=== PATIENT | male | born 1970 | race Caucasian/White ===

== ENCOUNTER 2016-08-04 09:11 | Emergency (ER) | payer SELFPAY ==
[~2016-08-04] VITALS: Ht 154.9 cm; Wt 50.0 kg
[~2016-08-04 09:11] MED LIST: NO HOME MEDICATIONS; OXYC1TAB8 PO; TAMS-1 PO
[2016-08-04 09:13] VITALS: Ht 154.9 cm; Wt 50.0 kg
--- OUTSIDE RECORDS SUMMARY | 2016-08-04 09:15 | XMS REPORT | Referral Summary ---
Author Author [facility] Organization [facility] Address Unknown Phone Unavailable Care Team Providers Care Occupational Therapist Per Diem Name Role Phone No PCP, States Primary Care Physician [phone] Encounter VC Date(s): 12/31/15 - 12/31/15 [facility] [address], [place] [address] Discharge Diagnosis: ETOH abuse Discharge Diagnosis: Acute alcohol intoxication Discharge Diagnosis: Hypomagnesemia Discharge Disposition: 01-Home or Self Care Attending Physician: Rk Stewart MD Admitting Physician: Rk Stewart MD Vital Signs Most recent to 1 oldest [Reference Range]: Temperature Oral 36.8 degC [35.8-37.3 degC] (12/31/15 7:44 PM) Peripheral Pulse 88 bpm Rate [60-100 bpm] (12/31/15 7:44 PM) Heart Rate Monitored 93 bpm [60-100 bpm] (12/31/15 10:08 PM) Respiratory Rate 25 br/min [14-20 br/min] *HI* (12/31/15 10:38 PM) Blood Pressure 116/80 mmHg [90-140/60-90 mmHg] (12/31/15 10:08 PM) Mean Arterial 91 mmHg Pressure, Cuff (12/31/15 10:08 PM) SpO2 95 % (12/31/15 10:38 PM) Problem List Condition Effective Dates Status Health Status Informant Alcoholism(Confirmed Resolved ) Anxiety(Confirmed) Resolved Depression(Confirmed Resolved ) Hep C(Confirmed) Resolved Liver Resolved disease(Confirmed) Allergies, Adverse Reactions, Alerts No Known Medication Allergies Medications busPIRone Oral, 0 Refill(s) Start Date: 09/25/13 Status: Ordered Campral 333 mg oral delayed release tablet tabs, Oral, TID, 0 Refill(s) Start Date: 09/25/13 Status: Ordered citalopram Oral, Daily, 0 Refill(s) Start Date: 09/25/13 Status: Ordered ProAir HFA puffs, Inhalation, QID, 0 Refill(s) Start Date: 09/25/13 Status: Ordered Results Hematology Most recent to 1 oldest [Reference Range]: WBC [4.8-10.8 7.8 10*3/uL 10*3/uL] (12/31/15 8:39 PM) RBC [4.60-6.20] 4.95 (12/31/15 8:39 PM) Hgb [14.0-18.0 15.3 gm/dL gm/dL] (12/31/15 8:39 PM) Hct [42.0-52.0 %] 44.1 % (12/31/15 8:39 PM) MCV [82.0-99.0 fL] 89.1 fL (12/31/15 8:39 PM) MCH [27.0-32.0 pg] 30.9 pg (12/31/15 8:39 PM) MCHC [32.0-36.0 34.7 gm/dL gm/dL] (12/31/15 8:39 PM) RDW [11.5-14.5 %] 13.2 % (12/31/15 8:39 PM) Platelet [150-400 236 10*3/uL 10*3/uL] (12/31/15 8:39 PM) MPV [9.4-12.3 fL] 11.0 fL (12/31/15 8:39 PM) Immature 0.1 % Granulocytes (12/31/15 8:39 PM) [0.0-1.0 %] Neutrophils [51-75 39 % %] *LOW* (12/31/15 8:39 PM) Lymphocytes [20-46 53 % %] *HI* (12/31/15 8:39 PM) Monocytes [4-11 %] 6 % (12/31/15 8:39 PM) Eosinophils [0-4 %] 1 % (12/31/15 8:39 PM) Basophils [0-2 %] 1 % (12/31/15 8:39 PM) Neutro Absolute 3.01 10*3 [1.90-7.00 10*3] (12/31/15 8:39 PM) Lymph Absolute 4.16 10*3 [0.80-3.30 10*3] *HI* (12/31/15 8:39 PM) [place] Absolute 0.48 10*3 [0.30-1.00 10*3] (12/31/15 8:39 PM) Eos Absolute 0.08 10*3 [0.00-0.50 10*3] (12/31/15 8:39 PM) Baso Absolute 0.07 10*3 [0.00-0.20 10*3] (12/31/15 8:39 PM) Chemistry Most recent to 1 oldest [Reference Range]: Sodium Lvl [136-144 141 mEq/L mEq/L] (12/31/15 8:39 PM) Potassium Lvl 3.6 mEq/L [3.6-5.1 mEq/L] (12/31/15 8:39 PM) Chloride [99-109 103 mEq/L mEq/L] (12/31/15 8:39 PM) CO2 [22-32 mEq/L] 27 mEq/L (12/31/15 8:39 PM) AGAP [3-20] 11 (12/31/15 8:39 PM) BUN [4-20 mg/dL] 6 mg/dL (12/31/15 8:39 PM) Glucose Lvl [70-100 105 mg/dL mg/dL] *HI* (12/31/15 8:39 PM) Creatinine Lvl 0.81 mg/dL [0.64-1.27 mg/dL] (12/31/15 8:39 PM) eGFR [>60] >60 1 (12/31/15 8:39 PM) Calcium Lvl 8.9 mg/dL [8.6-10.0 mg/dL] (12/31/15 8:39 PM) Albumin Lvl [3.5-4.8 4.2 gm/dL gm/dL] (12/31/15 8:39 PM) Total Protein 7.3 gm/dL [6.1-7.9 gm/dL] (12/31/15 8:39 PM) Globulin [1.9-4.3 3.1 gm/dL gm/dL] (12/31/15 8:39 PM) ALT [17-63 U/L] 219 U/L *HI* (12/31/15 8:39 PM) AST [15-41 U/L] 279 U/L *HI* (12/31/15 8:39 PM) Alk Phos [26-104 98 U/L U/L] (12/31/15 8:39 PM) Bili Total [0.2-1.2 0.6 mg/dL 2 mg/dL] (12/31/15 8:39 PM) Magnesium Lvl 1.6 mg/dL [1.8-2.5 mg/dL] *LOW* (12/31/15 8:39 PM) Sodium Venous 143 mEq/L [136-144 mEq/L] (12/31/15 8:44 PM) Potassium Venous 3.6 mEq/L 3 [3.6-5.1 mEq/L] (12/31/15 8:44 PM) Calcium Ionized 1.04 mmol/L Venous [1.19-1.41 *LOW* mmol/L] (12/31/15 8:44 PM) Total CO2 Venous 26 mEq/L [25-29 mEq/L] (12/31/15 8:44 PM) HGB Venous NPT 16.0 gm/dL [14.0-18.0 gm/dL] (12/31/15 8:44 PM) HCT Venous 47.0 % [42.0-52.0 %] (12/31/15 8:44 PM) Glucose Venous 103 mg/dL [70-100 mg/dL] *HI* (12/31/15 8:44 PM) BUN Venous [4-20] 6 (12/31/15 8:44 PM) Creatinine Venous 1.2 mg/dL [0.7-1.2 mg/dL] (12/31/15 8:44 PM) Venous CL [99-109 101 mEq/L mEq/L] (12/31/15 8:44 PM) Anion Gap, Oniel 16 [3-20] (12/31/15 8:44 PM) 1Result Comment: Multiply eGFR results by 1.21 for race. 2Result Comment: Naproxen, specifically the metabolite O-desmethylnaproxen, may cause spurious elevation in Total Bilirubin levels. 3Result Comment: This test was performed on a whole blood specimen. The presence or absence of hemolysis cannot be assessed. Hemolysis can falsely elevate potassium levels. Normals are for venous specimens only. Toxicology Most recent to 1 oldest [Reference Range]: Ethanol Lvl 317 mg/dL (12/31/15 9:10 PM) Immunizations No data available for this section Procedures No data available for this section Social History Social History Type Response Smoking Status Current every day smoker Assessment and Plan No data available for this section
--- OUTSIDE RECORDS SUMMARY | 2016-08-04 09:15 | XMS REPORT | Continuity of Care Document ---
Author Author [facility] Organization [facility] Address Unknown Phone Unavailable Support Name Relationship Address Phone JESS GRACE MD Caregiver [address] [place] [address] Unavailable ELEAZAR LOCKHART APRN Caregiver [address] [place] [address] Unavailable CONNER OLIVO Next Of Kin [address] [place] [address] Insurance Providers Guarantor Ruddy Franco Address [address] [place] [address] Email DENIED/NO TO PT PORT Payer Self Pay Subscriber's Name Ruddy Franco Relationship 18 Self Chief Complaint and Reason for Visit Chief Complaint General Reason for Visit [id number] Alcohol abuse Problems Active Problems Medical Problem Onset Date Status ALCOHOL WITHDRAWL Unknown Acute Acute hypernatremia Unknown Resolved Alcohol abuse Unknown Chronic Alcohol intoxication Unknown Resolved COPD (chronic obstructive pulmonary disease) Unknown Chronic Elevated LFTs Unknown Acute Hepatitis C Unknown Chronic Laceration Unknown Acute Poor dentition Unknown Chronic Shakiness Unknown Acute Somnolence Unknown Acute Underweight Unknown Chronic Past Problems Medical Problem Onset Date Kidney stone on left side Unknown Medications Current Home Medications Medication Dose Units Route Directions Days Qty Instructions Start Date No Home Medications 04/10/15 Oxycodone Hcl/Acetaminophen (Percocet 5-325 Mg Tablet) 5-325 Tablet 1 Tab Oral Four Times Daily for Pain 30 Tablet Take 1 tablet, by mouth, 4 times a day. 02/26/16 Tamsulosin Hcl (Flomax) 0.4 Mg Capsule 0.4 Mg Oral Bedtime 30 Capsule Take 1 capsule, by mouth, one time a day at BEDTIME. 02/26/16 Past Home Medications Medication Directions Ordered Status Oxazepam 30 Mg Capsule, 30 Mg Oral Q6h/0300,0900,1500,2100 for Tremors/ Withdrawal 10/21/14 Discontinued Social History Social History Problem Response Recorded Date/Time Onset Date Status Hx Substance Use N DENIES 02/26/2016 7:40am Not Applicable Not Applicable Hx Alcohol Use Y 0.5 GALLON/DAY 02/26/2016 7:40am Not Applicable Not Applicable Has the pt used tobacco in the last 12 months Yes 04/11/2015 12:22am Not Applicable Not Applicable Tobacco Usage smoke 04/11/2015 11:13am Not Applicable Not Applicable Query Response Start Date Stop Date Smoking Status Heavy Smoker Hospital Discharge Instructions No hospital discharge instructions. Plan of Care Discharge Date 02/26/16 1:26pm Disposition 01 DISCHARGED HOME, SELF-CARE Condition at Discharge Improved Instructions/Education Provided Kidney Stones -- Adult Forms Provided Return to Work/School Permit Prescriptions See Medication Section Referrals ELEAZAR LOCKHART APRN Address: [address] [place] [phone] Additional Instructions/Education Please call your primary care physician for follow-up. Because of her history of bladder surgery, you may have difficulty passing the stone. Every1Mobile phone number is [phone]. Care Plan and Goals Physician Care Plan Problem: Kidney stone Goal: Follow up with primary care provider Instructions: Take medications and follow care plan as discussed/written Functional Status No functional status results. Allergies, Adverse Reactions, Alerts Allergen Type Severity Reaction Status Last Updated No Known Drug Allergies Allergy Unknown Active 05/29/15 Immunizations Query Response on File Recorded Date/Time Hx Influenza Vaccination No 04/11/15 12:22am Hx Pneumococcal Vaccination No 04/11/15 12:22am Hx Influenza Vaccination No 04/11/15 12:22am Influenza Vaccine Hx NONE 02/26/16 7:40am Vital Signs Acute Vital Signs Vital Response Date/Time Temperature (Fahrenheit) 98.6 deg F (96.8 - 99.1) 02/26/2016 1:26pm Temperature (Calculated Celsius) 37.26347 degrees C (36.0 - 37.3) 02/26/2016 1:26pm Pulse Rate (adult) 90 bpm (60 - 100) 02/26/2016 1:26pm Respiratory Rate 16 breaths/min (10 - 20) 02/26/2016 1:26pm O2 Sat by Pulse Oximetry 94 % (90 - 100) 02/26/2016 1:26pm Blood Pressure 144/97 mm Hg 02/26/2016 1:26pm Height (Feet) 5 feet 02/26/2016 7:40am Height (Inches) 9.00 inches 02/26/2016 7:40am Weight (Kilograms) 57.100 kg 02/26/2016 7:40am Body Mass Index (BMI) 18.0 02/26/2016 7:40am Results Laboratory Results Test Name Result Units Flags Reference Collection Date/Time Result Date/ Time Comments White Blood Count 6.8 T/MM3 4.5-11.0 02/26/2016 9:02/26/2016 9: 25am Red Blood Count 5.57 M/MM3 4.50-5.90 02/26/2016 9:02/26/2016 9: 25am Hemoglobin 16.7 GM/DL 13.5-17.5 02/26/2016 9:02/26/2016 9:25am Hematocrit 49.3 % 41-53 02/26/2016 9:02/26/2016 9:25am Mean Corpuscular Volume 88.5 UM3 80-100 02/26/2016 9:02/26/2016 9: 25am Mean Corpuscular Hemoglobin 30.0 UUG 26-34 02/26/2016 9:2015 9:25am Mean Corpuscular Hemoglobin Concent 33.9 GM/DL 31-37 02/26/2016 9:02/26/2016 9:25am RDW Standard Deviation 44.0 FL 36.9-50.2 02/26/2016 9:02/26/2016 9 :25am Platelet Count 127 T/MM3 L 130-400 02/26/2016 9:02/26/2016 9:25am Mean Platelet Volume 11.0 UM3 9.4-12.4 02/26/2016 9:02/26/2016 9: 25am Neutrophils (%) (Auto) 41.6 % 33-66 02/26/2016 9:02/26/2016 9: 25am Lymphocytes (%) (Auto) 49.3 % H 23-45 02/26/2016 9:02/26/2016 9: 25am Monocytes (%) (Auto) 5.4 % 0-9.0 02/26/2016 9:02/26/2016 9:25am Eosinophils (%) (Auto) 2.8 % 0-4 02/26/2016 9:02/26/2016 9:25am Basophils (%) (Auto) 0.6 % 0-2 02/26/2016 9:02/26/2016 9:25am Immature Granulocyte % (Auto) 0.3 % 0.0-0.5 02/26/2016 9:2015 9:25am Absolute Neutrophils (auto) 2.9 T/MM3 1.8-7.7 02/26/2016 9:2015 9:25am Absolute Lymphocytes (auto) 3.4 T/MM3 1-4.8 02/26/2016 9:2015 9:25am Absolute Monocytes (auto) 0.4 T/MM3 0-0.8 02/26/2016 9:02/26/2016 9:25am Absolute Eosinophils (auto) 0.2 T/MM3 0-0.5 02/26/2016 9:2015 9:25am Absolute Basophils (auto) 0.0 T/MM3 0-0.2 02/26/2016 9:02/26/2016 9:25am Absolute Immature Granulocyte (auto 0.02 T/MM3 0.00-0.03 02/26/2016 9: 02/26/2016 9:25am Icterus Index < 2 0-7 02/26/2016 9:02/26/2016 9:35am Chemistry Specimen Hemolysis 24 0-25 02/26/2016 9:02/26/2016 9: 35am 0-25: Specimen Exhibited No Hemolysis. Turbidity < 20 0-20 02/26/2016 9:02/26/2016 9:35am Sodium Level 148 MEQ/L H 134-144 02/26/2016 9:02/26/2016 9:35am Potassium Level 4.1 MEQ/L 3.6-5 02/26/2016 9:02/26/2016 9:35am Chloride Level 105 MEQ/L 98-107 02/26/2016 9:02/26/2016 9:35am Carbon Dioxide Level 29 MEQ/L 22-30 02/26/2016 9:02/26/2016 9: 35am Anion Gap 14 MEQ/L 5-15 02/26/2016 9:02/26/2016 9:35am Blood Urea Nitrogen 8.0 MG/DL L 9-20 02/26/2016 9:02/26/2016 9: 35am Creatinine 0.7 MG/DL L 0.8-1.5 02/26/2016 9:02/26/2016 9:35am BUN/Creatinine Ratio 11 RATIO 6-26 02/26/2016 9:02/26/2016 9:35am Glomerular Filtration Rate Calc 122 02/26/2016 9:02/26/2016 9: 35am Glucose Level 108 MG/DL 75-110 02/26/2016 9:02/26/2016 9:35am Calculated Osmolality 283 MOSM/KG H 261-280 02/26/2016 9:2015 9:35am Calcium Level 8.9 MG/DL 8.4-10.2 02/26/2016 9:02/26/2016 9:35am Phosphorus Level 3.6 MG/DL 2.5-4.5 02/26/2016 9:02/26/2016 9:35am Total Bilirubin 0.60 MG/DL 0.20-1.30 02/26/2016 9:02/26/2016 9: 35am Alkaline Phosphatase 101 U/L 38-126 02/26/2016 9:02/26/2016 9: 35am Total Protein 7.8 G/DL 6.3-8.2 02/26/2016 9:02/26/2016 9:35am Albumin 4.4 G/DL 3.5-5.0 02/26/2016 9:02/26/2016 9:35am Globulin 3.4 G/DL 2.4-3.6 02/26/2016 9:02/26/2016 9:35am Albumin/Globulin Ratio 1.3 RATIO 1.1-2.2 02/26/2016 9:02/26/2016 9 :35am Aspartate Amino Transf (AST/SGOT) 170 U/L H 17-59 02/26/2016 9: 9:35am Alanine Aminotransferase (ALT/SGPT) 124 U/L H 21-72 02/26/2016 9: 9:35am Lipase 170 U/L 23-300 02/26/2016 9:02/26/2016 9:44am Magnesium Level 1.7 MG/DL 1.6-2.3 02/26/2016 9:02/26/2016 9:44am Ammonia 12 UMOL/L 9-33 02/26/2016 9:02/26/2016 9:35am Acetaminophen Level < 10 UG/ML L 10-02/26/2016 9:02/26/2016 9: 35am TOXIC <4 HR POST INGESTION: >150 MG/L; TOXIC <12 HR POST INGESTION: >50 MG/L Salicylates Level < 1.0 MG/DL L 2-02/26/2016 9:02/26/2016 9: 35am Alcohol, Quantitative 267 MG/DL <10 02/26/2016 9:02/26/2016 9: 35am Urine Collection Type VOIDED-NOT CC-MIDSTR 02/26/2016 9:432015 9:50am Urine Color YELLOW YELLOW 02/26/2016 9:4302/26/2016 9:50am Urine Turbidity CLEAR CLEAR 02/26/2016 9:43am 02/26/2016 9:50am Urine Specific [place] 1.025 1.015-1.025 02/26/2016 9:43am 2015 9:50am Urine pH 6.0 5.0-8.0 02/26/2016 9:43am 02/26/2016 9:50am Urine Leukocyte Esterase NEGATIVE NEGATIVE 02/26/2016 9:43am 2015 9:50am Urine Nitrite NEGATIVE NEGATIVE 02/26/2016 9:43am 02/26/2016 9:50am Urine Protein 1+ A NEGATIVE 02/26/2016 9:43am 02/26/2016 9:50am Urine Glucose (UA) NEGATIVE NEGATIVE 02/26/2016 9:43am 02/26/2016 9: 50am Urine Ketones NEGATIVE NEGATIVE 02/26/2016 9:43am 02/26/2016 9:50am Urine Urobilinogen 0.2 EU/DL NORMAL 02/26/2016 9:43am 02/26/2016 9: 50am Urine Bilirubin NEGATIVE NEGATIVE 02/26/2016 9:43am 02/26/2016 9: 50am Urine Blood 3+ A NEGATIVE 02/26/2016 9:43am 02/26/2016 9:50am Urine WBC NONE SEEN /HPF 0-5 02/26/2016 9:43am 02/26/2016 10:19am Urine RBC 50-200 /HPF H 0-3 02/26/2016 9:43am 02/26/2016 10:19am Urine Bacteria TRACE H NEGATIVE 02/26/2016 9:43am 02/26/2016 10:19am Urine Mucus PRESENT 02/26/2016 9:43am 02/26/2016 10:19am Urine Culture Indicated CULT NOT INDICATED 02/26/2016 9:43am 2015 10:19am Name: RUDDY FRANCO Unit #: [id number] : 1970 Sex: M Admit Date: Loc / Svc: ED Discharge Date: DIAGNOSTIC IMAGING REPORT Report #: [id number] [facility] MARVEL Indication: ITS.REASON: left flank pain, hematuria Procedure: CT ABD/PELVIS W/O CONTRAST: Encounter: Initial Comparison: None Technique: Axial CT images were performed through the abdomen and pelvis without intravenous contrast. Coronal and sagittal reformatted images were also obtained. Findings: Lower chest: Right lower lobe groundglass opacities likely related to atelectasis. The visualized heart is normal in size without pericardial effusion. Abdomen: The noncontrast liver is homogeneous in attenuation. The gallbladder is distended and appears normal. No biliary ductal dilatation. The noncontrast pancreas is homogeneous in attenuation. The spleen is normal in size and attenuation. The adrenal glands are within normal limits. 3 mm nonobstructing left renal stone. Mild asymmetric prominence of the left ureter without sujatha left hydronephrosis. The noncontrast kidneys appear otherwise grossly normal. The right ureter is normal in course and caliber. The abdominal aorta is normal in course and caliber. The stomach is partially distended and appears grossly normal. Small bowel loops are normal in caliber without evidence of obstruction. The colon appears grossly normal. The appendix is normal. No intra-abdominal free air, free fluid, focal fluid collections, or lymphadenopathy. Pelvis: 3 mm stone noted within the left bladder/left ureterovesicular junction. The bladder is distended and appears otherwise normal. No pelvic free fluid or lymphadenopathy. Calcified pelvic phleboliths. Nonspecific prostatic calcifications. The prostate and seminal vesicles appear otherwise normal. Osseous structures and soft tissues: No acute osseous abnormality identified. Chronic appearing irregularity of the inferior pubic rami suggesting prior fractures. Mild degenerative disc disease of the visualized spine. Impression: 3 mm stone noted within the left bladder/left ureterovesicular junction with associated mild asymmetric prominence of the left ureter without sujatha left hydronephrosis. Additional 3 mm nonobstructing stone also noted within the left kidney. . Procedures No known history of procedures. Encounters Encounter Location Arrival/Admit Date Discharge/Depart Date Attending Provider Departed Emergency Room [facility] 02/26/16 7:37am 02/26/16 1: 26pm JESS GRACE MD Recent Diagnosis
--- OUTSIDE RECORDS SUMMARY | 2016-08-04 09:15 | XMS REPORT | Continuity of Care Document ---
Author Author [facility] Organization [facility] Address Unknown Phone Unavailable Allergies Active Description Code Type Severity Reaction Onset Reported/Identified Relationship to Patient Clinical Status Yes No Known Medication Allergies NKMA N/A N/A 03/08/2015 Medications Problems Date Dx Coded Attending Type Code Diagnosis Diagnosed By 01/02/2016 Rk Stewart Final E83.42 Hypomagnesemia 01/02/2016 Rk Stewart Reason F10.129 Alcohol abuse with intoxication, unspecified 01/02/2016 Rk Stewart Final F17.200 Nicotine dependence, unspecified, uncomplicated 01/02/2016 Rk Stewart Final 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 Visit Date/Time Discharge Status Pt. Type Provider Facility Loc./Unit Complaint [id number] 05/25/2013 14:33:00 05/25/2013 23 :59:59 [facility] Outpatient [id number] 05/12/2013 14:57:00 05/12/2013 23 :59:59 [facility] Outpatient
--- OUTSIDE RECORDS SUMMARY | 2016-08-04 09:15 | XMS REPORT ---
Author [facility] Organization Unknown Address Unknown Phone Unavailable Care Team Providers Care Spouting Installer Name Role Phone UNASSIGNED DOCTOR , DOCTOR PP [phone] Reason For Visit Chief Complaint LACERATION LEFT HAND Social History Functional Status Vital Signs Results Problems Encounter Diagnosis No relevant problems exist. Additional Problems * Alcohol Intoxication Comment:Problem resolved by [facility] Workflow upon Discharge, Status:Resolved. * Alcohol Wthdrawal Syndrome Comment:Problem resolved by [facility] [employer] upon Discharge, Status:Resolved. * Alcoholic Hepatitis Comment:Problem resolved by [facility] Work[facility] upon Discharge, Status:Resolved. * Feeling Suicidal Comment:Problem resolved by [facility] Work[facility] upon Discharge, Status:Resolved. * Nausea & Vomiting Comment:Problem resolved by [facility] Work[facility] upon Discharge , Status:Resolved. Encounters Encounter Diagnosis No relevant problems exist. Plan of Care Procedures * Completed , on 03/01/2013 12:00 AM * Completed , on 02/28/2013 12:00 AM * Completed , on 09/26/2012 12:00 AM * Completed , on 08/19/2011 12:00 AM * Completed , on 04/18/2011 12:00 AM * Completed , on 04/04/2009 12:00 AM Immunizations No immunizations administered or ordered. Hospital Course Hospital Discharge Instructions Allergies, Adverse Reactions, Alerts * Latex Allergy has not been assessed. * IV Contrast Allergy has not been assessed. * No Known Drug Allergies. Medication Medication reconciliation has not been performed.
--- NOTE | 2016-08-04 09:27 | NUR ---
PHYSICIAN DR. LANGFORD AT BEDSIDE TO EXAMINE Pt.
[2016-08-04] MEDS ORDERED: THIAMINE 100 MG, FOLIC ACID 1 MG, MULTI-VIT INF, ADULT 10 ML in NORMAL SALINE 1,000 ML IV ONE ×4 (09:30)
--- NOTE | 2016-08-04 09:41 | ERPDOC ---
Departure Disposition Decision Date: August 04, 2016 Disposition Decision Time: 14:51 Disposition: 01 DISCHARGED HOME, SELF-CARE Impression Impression Impression: Primary Impression: Alcohol intoxication Complication of substance-induced condition: uncomplicated Qualified Codes: F10.920 - Alcohol use, unspecified with intoxication, uncomplicated Severity: Moderate Condition: Improved Seen By: Physician only Referrals: ELEAZAR LOCKHART APRN (Family) 1 Day Patient Instructions: Alcohol Use Disorder (ED) Problems/Meds/Labs Reviewed?: Yes Medications reviewed and manag: Yes Follow up care ordered?: Yes Mental Status: Alert, Oriented HPI - General Medical General Chief Complaint: Altered Mental Status Stated Complaint: DETOX Time Seen by Provider: 09:38 Source: patient (Patient presents to the ER for Acute Alcohol intoxication. Patient is with his Father who stated he's been drinking heavily for several hours. They contacted Lori Delgadillo, who asked that he bring the patient to the ER for evaluation. ) Exam Limitations: intoxication HPI - General Medical Occurred At: home Onset: Changing over time Duration: 12-24 hrs Pain Scale: Now & Worst: 0/10 Modifying Factors: IMPROVES WITH: other (ETOH) Associated Symptoms: malaise, DENIES: chest pain, cough, diaphoresis, fever/ chills, headaches, loss of appetite, nausea/vomiting, rash, seizure, shortness of breath, syncope, weakness Hx of Similar Symptoms: Yes Allergies: Coded Allergies: No Known Drug Allergies (Verified Allergy, Unknown, 08/04/16) Past History Patient Surgical History urethral surgery Past Medical History Pt denies signifigant PMH Hx Echocardiogram: No Respiratory: COPD Infectious: hepatitis C Psychological: alcohol abuse Surgical History Reproductive/: other Family History Family PMH: FOUND: other Vaccines Hx Influenza Vaccination: No Hx Pneumococcal Vaccination: No Social History Smoking Status: Unknown if ever smoked Does patient use chewing tobac: No # of Packs/Tins per Day: 0.5 # of Years: 30 Second Hand Exposure: No Substance Use Type: does not use Alcohol Intake: daily Last Drink: unknown Marital Status: Single Service: No Occupational Hazard: No Advance Directives: Yes Full Code Record Review Pertinent history updated: Yes Review of Systems Constitutional Constitutional: DENIES: chills, fever Eyes Lids/Accessories: DENIES: erythema, swelling ENMT Ears: DENIES: erythema, pain Balance: DENIES: ataxia, vertigo Sinuses: DENIES: congestion, rhinorrhea Mouth/Throat: DENIES: sore throat Cardiovascular Cardiac: DENIES: chest pain, dyspnea on exertion, orthopnea Rhythm/Rate: DENIES: tachycardia Pulmonary Respiratory: DENIES: cough, dyspnea, sputum GI Upper Abdomen: DENIES: nausea, pain, vomiting Lower Abdomen: DENIES: constipation, diarrhea, pain General: DENIES: dysuria Musculoskeletal General: DENIES: cramps, pain, weakness Integumentary Skin: DENIES: color change, itching, rash Neurological General: DENIES: ataxia, change in strength, headache, numbness, poor coordination, seizures, syncope, vertigo, weakness Psychiatric Psychiatric: DENIES: anxiety, depression, nervousness Hematologic/Lymphatic Hematologic/Lymphatic: DENIES: anemia Allergic/Immunological Allergic/Immunoligical: DENIES: sneezing All other Systems All Other Systems: Reviewed and Negative Physical Exam General General Nourishment: well nourished, well developed, appears stated age, adult , thin General Body Habitus: disheveled Vitals and Pain First Documented Vital Signs Date Time Temp Pulse Resp B/P Pulse Ox O2 Delivery O2 Flow Rate FiO2 08/04/16 09:13 97.7 104 16 124/82 95 08/04/16 09:30 Room Air Weight: Kilograms: 50.000 Height (feet): 5 Height (inches): 1.00 Triage Pain Scale: RN VS reviewed by Provider: Yes Eyes (brief) Eyes Brief: found: EOMI, PERRL ENMT (brief) ENMT Brief: FOUND: TM clear, TM good light reflex, mucosa moist, NOT FOUND: pharnyx erythema Neck (brief) Neck: FOUND: trachea midline, NOT FOUND: adenopathy, tenderness, tracheal deviation Respiratory (brief) Respiratory: FOUND: clear all silver, equal bilaterally Cardiovascular (brief) Cardiac: FOUND: regular rate, regular rhythm Capillary Refill: <2 sec Pulses: all distal extremities, equal, strong Abdomen (brief) Abdominal Brief: FOUND: bowel normo active x4, soft, NOT FOUND: distended, tender Lymphatic (brief) Lymphatic Brief: NOT FOUND: adenopathy Musculoskeletal (brief) Musculoskeletal Brief: NOT FOUND: spasm, tenderness Integumentary (brief) Integumentary Brief: FOUND: pink, warm Neurologic (brief) Neurological Brief: FOUND: CN w/o gross def to obs, motor-no gross deficits, sensory-no gross deficits Psychiatric (brief) Psychiatric Brief: FOUND: alert, attentive, normal affect, oriented Differential Diagnoses Considering: Alcohol Intoxication, Hypo/Hyperglycemia, Hypo/Hyperkalemia, Hypo/ Hypernatremia, Intracranial Hemorrhage, Other Progress Results/Orders Orders Procedure Category Date Status Time Cmp - Comprehensive LAB 08/04/16 Complete Metabolic 09:26 Cbc W/Auto LAB 08/04/16 Complete Diff-Reflex Manual 09:26 Ethanol LAB 08/04/16 Complete 09:26 Magnesium LAB 08/04/16 Complete 09:26 Phosphorus LAB 08/04/16 Complete 09:26 Drug Screen LAB 08/04/16 Complete Urine-Test At [facility] [place] 09:26 Acetaminophen LAB 08/04/16 Complete 09:26 Salicylate LAB 08/04/16 Complete 09:26 Ua, Dip Wreflex LAB 08/04/16 Complete Microsc & Assistant Restaurant General Manager 09:26 Iv Lock (Ed Only) EDM 08/04/16 Transmitted 09:26 Thiamine (Vit. B1)... PHA 08/04/16 Complete 09:30 Nothing By Mouth (Ed EDM 08/04/16 Transmitted Only) 09:26 Ethanol LAB 08/04/16 Complete 1/2 Ns (0.45% Ns) PHA 08/04/16 Complete 13:45 Lab Results Laboratory Tests Test 08/04/16 09:51 08/04/16 12:38 08/04/16 14:43 08/04/16 15:25 White Blood Count 9.9T/MM3 Red Blood Count 5.19M/MM3 Hemoglobin 15.8GM/DL Hematocrit 45.2% Mean Corpuscular Volume 87.1UM3 Mean Corpuscular Hemoglobin 30.4UUG Mean Corpuscular Hemoglobin Concent 35.0GM/DL RDW Standard Deviation 39.8FL Platelet Count 207T/MM3 Mean Platelet Volume 11.1UM3 Immature Granulocyte % (Auto) 0.2% Neutrophils (%) (Auto) 47.9% Lymphocytes (%) (Auto) 45.9% Monocytes (%) (Auto) 3.8% Eosinophils (%) (Auto) 1.2% Basophils (%) (Auto) 1.0% Absolute Immature Granulocyte (auto 0.02T/MM3 Absolute Neutrophils (auto) 4.8T/MM3 Absolute Lymphocytes (auto) 4.6T/MM3 Absolute Monocytes (auto) 0.4T/MM3 Absolute Eosinophils (auto) 0.1T/MM3 Absolute Basophils (auto) 0.1T/MM3 Turbidity < 20 Sodium Level 151MEQ/L Potassium Level 4.2MEQ/L Chloride Level 110MEQ/L Carbon Dioxide Level 22MEQ/L Anion Gap 19MEQ/L Blood Urea Nitrogen 11.0MG/DL Creatinine 0.7MG/DL Glomerular Filtration Rate Calc 122 BUN/Creatinine Ratio 16RATIO Glucose Level 76MG/DL Calculated Osmolality 288MOSM/KG Calcium Level 9.3MG/DL Phosphorus Level 4.3MG/DL Magnesium Level 1.8MG/DL Total Bilirubin 0.60MG/DL Icterus Index < 2 Aspartate Amino Transf (AST/SGOT) 236U/L Alanine Aminotransferase (ALT/SGPT) 178U/L Alkaline Phosphatase 106U/L Total Protein 7.7G/DL Albumin 4.6G/DL Globulin 3.1G/DL Albumin/Globulin Ratio 1.5RATIO Chemistry Specimen Hemolysis < 15 Salicylates Level < 1.0MG/DL Acetaminophen Level < 10UG/ML Alcohol, Quantitative 334MG/DL 273MG/DL Urine Collection Type Cleancatch-midstream Urine Color Yellow Urine Turbidity Clear Urine pH 5.0 Urine Specific [place] 1.020 Urine Protein Negative Urine Glucose (UA) Negative Urine Ketones 1+ Urine Blood Negative Urine Nitrite Negative Urine Bilirubin Negative Urine Urobilinogen 0.2EU/DL Urine Leukocyte Esterase Negative Urinalysis Comment Microscopic not ind. Urine Opiates Screen NegativeNG/ML Urine Oxycodone Screen NegativeNG/ML Urine Methadone Screen NegativeNG/ML Urine Propoxyphene Screen NegativeNG/ML Urine Barbiturates Screen NegativeNG/ML Urine Tricyclic Antidepressants NegativeNG/ML Urine Phencyclidine Screen NegativeNG/ML Urine Amphetamines Screen NegativeNG/ML Urine Methamphetamines Screen NegativeNG/ML Urine Benzodiazepines Screen NegativeNG/ML Urine Cocaine Screen NegativeNG/ML Urine Cannabinoids Screen NegativeNG/ML Lab Scanned Report REFERENCE [id number] Medications Current ED Medications Thiamine HCl 100 mg/Folic Acid 1 mg/Multivitamins/ Minerals 10 ml/ Sodium Chloride 1,011.2 ml @ 250 mls/ hr O ONCE IV Last administered on 08/04/16t 09: 54; Start 08/04/16 at 09:30; Stop 08/04/16 at 13:32; Status DC Sodium Chloride (0.45% NS) 1,000 ml @ 250 mls/hr Q4H ONCE IV Last administered on 08/04/16t 13:53; Start 08/04/16 at 13:45; Stop 08/04/16 at 16:08; Status DC Progress Progress Patient's blood alcohol has improved Patient is alert and oriented, and he's refusing detox, wanting to go home Patient is alert and orients, he's not ataxic, and has a steady gait Father will drive the patient home Patient and Father refused CT of the head, patient and Father deny recent Trauma Consult/PCP Consult/PCP : Physician Contacted: Dr. Stevens Time Called: 12:50 Time of first response: 13:05 Type of discussion: Phone Consult/PCP Discussion Details Discussed patient evaluation, labs, and patient request for Detox I also discussed the Status/Volume of the ER Comments Call back with results of repeat Blood Alcohol MICHELLE LANGFORD DO August 04, 2016 09:41
--- NOTE | 2016-08-04 09:55 | NUR ---
IV START/Pt BEHAVIOR 20g STARTED TO UPPER RIGHT ARM. Pt BECAME COMBATIVE AND UNCOOPERATIVE PRIOR TO START. Pt ABLE TO BE REDIRECTED, AND BANANA BAG STARTED AFTER IV SECURED. Pt RESTING QUIETLY IN BED AT THIS TIME, FATHER IN ROOM, WILL CONTINUE TO MONITOR.
[2016-08-04 10:01] LABS: BASOPHILS # (AUTO) 0.1 T/MM3 (0-0.2); EOSINOPHILS # (AUTO) 0.1 T/MM3 (0-0.5); EOSINOPHILS % (AUTO) 1.2 % (0-4); HCT - HEMATOCRIT 45.2 % (41-53); HGB - HEMOGLOBIN 15.8 GM/DL (13.5-17.5); IMMATURE GRANULOCYTE # (AUTO) 0.02 T/MM3 (0.00-0.03); IMMATURE GRANULOCYTE % (AUTO) 0.2 % (0.0-0.5); LYMPHOCYTES # (AUTO) 4.6 T/MM3 (1-4.8); LYMPHOCYTES % (AUTO) 45.9 % (23-45); MEAN CORPUSCULAR HGB 30.4 UUG (26-34); MEAN CORPUSCULAR VOLUME 87.1 UM3 (80-100); MEAN PLATELET VOLUME 11.1 UM3 (9.4-12.4); MONOCYTES # (AUTO) 0.4 T/MM3 (0-0.8); MONOCYTES % (AUTO) 3.8 % (0-9.0); NEUTROPHILS #(AUTO)-ABSOLUTE 4.8 T/MM3 (1.8-7.7); NEUTROPHILS % (AUTO) 47.9 % (33-66); RED BLOOD COUNT 5.19 M/MM3 (4.50-5.90); WBC - WHITE BLOOD COUNT 9.9 T/MM3 (4.5-11.0)
--- OUTSIDE RECORDS SUMMARY | 2016-08-04 10:01 | XMS REPORT | Continuity of Care Document ---
Author Author [facility] Organization [facility] Address Unknown Phone Unavailable Allergies Active Description [...] uncomplicated 01/02/2016 Rk Stewart Final Z79.899 Other laborer marine terminal (current) drug therapy Procedures Results Encounters ACCT No. Visit Date/Time Discharge Status Pt. Type Provider Facility Loc./Unit Complaint [id number] 05/25/2013 14:33:00 05/25/2013 23 :59:59 [facility] Outpatient [id number] 05/12/2013 14:57:00 05/12/2013 23 :59:59 [facility] Outpatient
--- OUTSIDE RECORDS SUMMARY | 2016-08-04 10:01 | XMS REPORT ---
Author Author [facility] Organization Unknown Address Unknown Phone Unavailable Care Team Providers Care Switching Clerk Name Role Phone UNASSIGNED DOCTOR , DOCTOR PP [phone] Reason For Visit Chief Complaint LACERATION LEFT [...]
[2016-08-04 10:11] LABS: ACETAMINOPHEN < 10 UG/ML (10-30); ALBUMIN 4.6 G/DL (3.5-5.0); ALBUMIN/GLOBULIN RATIO 1.5 RATIO (1.1-2.2); ALKALINE PHOSPHATASE 106 U/L (38-126); ALT (SGPT) 178 U/L (21-72); ANION GAP 19 MEQ/L (5-15); AST (SGOT) 236 U/L (17-59); BUN/CREATININE RATIO 16 RATIO (6-26); CALCIUM 9.3 MG/DL (8.4-10.2); CHLORIDE 110 MEQ/L (98-107); CO2 - CARBON DIOXIDE 22 MEQ/L (22-30); CREATININE 0.7 MG/DL (0.8-1.5); GLOMERULAR FILTRATION RATE 122; GLUCOSE 76 MG/DL (75-110); MAGNESIUM 1.8 MG/DL (1.6-2.3); PHOSPHORUS 4.3 MG/DL (2.5-4.5); POTASSIUM 4.2 MEQ/L (3.6-5); SALICYLATE < 1.0 MG/DL (2-20); SODIUM 151 MEQ/L (134-144); TOTAL PROTEIN 7.7 G/DL (6.3-8.2)
[2016-08-04 10:18] LABS: ETHANOL 334 MG/DL (<10)
--- NOTE | 2016-08-04 11:05 | NUR ---
PD AT BEDSIDE TO ASSESS SITUATION, THEN TO LOBBY TO SPEAK WITH Pt'S FATHER.
--- NOTE | 2016-08-04 11:16 | NUR ---
PHYSICIAN DR. LANGFORD AT BEDSIDE WITH PD.
--- NOTE | 2016-08-04 11:26 | NUR ---
STATUS Pt CONSENTING TO CARE AT THIS TIME, FLUIDS RESUMED, Pt RESTING QUIETLY IN BED.
--- NOTE | 2016-08-04 12:35 | NUR ---
STATUS Pt RESTING QUIETLY IN BED, MEDICAL LANGUAGE SPECIALIST AT BEDSIDE TO REDRAW BLOOD FOR ETOH LEVEL.
--- NOTE | 2016-08-04 13:23 | NUR ---
STATUS Pt RESTING QUIETLY IN BED, SLEEPING. WILL CONTINUE TO MONITOR.
[2016-08-04] MEDS ORDERED: 1/2 NS 1,000 ML IV ONE (13:45)
--- NOTE | 2016-08-04 13:50 | NUR ---
REPORT GIVEN TO JAMI GILMAN--CARE ASSUMED.
[2016-08-04 14:49] LABS: BLOOD, URINE NEGATIVE (NEGATIVE); COLOR,URINE YELLOW (YELLOW); LEUKOCYTE ESTERASE ,URINE NEGATIVE (NEGATIVE); NITRITE,URINE NEGATIVE (NEGATIVE); UROBILINOGEN,URINE 0.2 EU/DL (NORMAL)
[2016-08-04 15:00] VITALS: BP 111/71; PULSE 81; RESP 16; TEMP 97.7; O2SAT 95
[2016-08-04 15:09] LABS: AMPHETAMINE SCREEN,URINE NEGATIVE; BARBITURATE SCREEN,URINE NEGATIVE; BENZODIAZEPINES SCREEN,URINE NEGATIVE; CANNABINOID SCREEN,URINE NEGATIVE; COCAINE SCREEN,URINE NEGATIVE; METHADONE SCREEN, URINE NEGATIVE; METHAMPHETAMINE SCREEN, URINE NEGATIVE; OPIATE SCREEN,URINE NEGATIVE; PHENCYCLIDINE SCREEN,URINE NEGATIVE; TRICYCLIC ANTIDEPRESSANT,URINE NEGATIVE
== END 2016-08-04 15:00 | disposition home or self-care (01) ==
LOC: ED 09:11
DX: F10.120 Alcohol abuse with intoxication, uncomplicated (principal); Y90.9 Presence of alcohol in blood, level not specified
CPT/HCPCS: 36415; 80053; 80306; 80307; 81003; 83735; 84100; 85025

== ENCOUNTER 2016-08-15 16:33 | Emergency (ER) | payer OTHER ==
[~2016-08-15] VITALS: Ht 172.7 cm; Wt 70.0 kg
[~2016-08-15 16:33] MED LIST changes: -OXYC1TAB8 PO; -TAMS-1 PO
--- OUTSIDE RECORDS SUMMARY | 2016-08-15 16:40 | XMS REPORT ---
Author Author [facility] Organization Unknown Address Unknown Phone Unavailable Care Team Providers Care Able Bodied Watchman Name Role Phone UNASSIGNED DOCTOR , DOCTOR PP [phone] Reason For Visit Chief Complaint LACERATION LEFT [...]
--- OUTSIDE RECORDS SUMMARY | 2016-08-15 16:40 | XMS REPORT | Continuity of Care Document ---
Author Author [facility] Organization [facility] Address Unknown Phone Unavailable Allergies Active Description [...] uncomplicated 01/02/2016 Rk Stewart Final Z79.899 Other terminal operator (current) drug therapy Procedures Results Encounters ACCT No. Visit Date/Time Discharge Status Pt. Type Provider Facility Loc./Unit Complaint [id number] 05/25/2013 14:33:00 05/25/2013 23 :59:59 [facility] Outpatient [id number] 05/12/2013 14:57:00 05/12/2013 23 :59:59 [facility] Outpatient
--- OUTSIDE RECORDS SUMMARY | 2016-08-15 16:40 | XMS REPORT | Continuity of Care Document ---
Author Author [facility] Organization [facility] Address Unknown Phone Unavailable Support Name Relationship Address Phone MICHELLE LANGFORD DO Caregiver [address] [place] [address] Unavailable ELEAZAR LOCKHART APRN Caregiver [address] [place] [address] Unavailable YENNY FRANCO Next Of Kin [address] [place] [address] Insurance Providers Guarantor Ruddy Franco Address [address] [place] [address] Email DENIED/NO TO PT PORT 16 Payer Self Pay Subscriber's Name Ruddy Franco Relationship 18 Self Advance Directives Directive Response Recorded Date/Time Advanced Directives Type None 08/04/16 9:13am Chief Complaint and Reason for Visit Chief Complaint Altered Mental Status Reason for Visit Alcohol intoxication Problems Active Problems Medical Problem Onset Date [...] Instructions Start Date No Home Medications 04/10/15 Past Home Medications Medication Directions Ordered Status Oxazepam 30 Mg Capsule, 30 Mg Oral Q6h/0300,0900,1500,2100 for Tremors/ Withdrawal 10/21/14 Discontinued Social History Social History Problem Response Recorded Date/Time Onset Date Status Hx Substance Use N DENIES 08/04/2016 9:25am Not Applicable Not Applicable Hx Alcohol Use Y VODKA--Pt REPORTS "ABOUT A PINT/DAY" 08/04/2016 9:25am Not Applicable Not Applicable Has the pt used tobacco in the last 12 months Yes 04/11/2015 12:22am Not Applicable Not Applicable Tobacco Usage smoke 04/11/2015 11:13am Not Applicable Not Applicable Query Response Start Date Stop Date Smoking Status Current every day smoker Hospital Discharge Instructions No hospital discharge instructions. Plan of Care Discharge Date 08/04/16 3:00pm Disposition 01 DISCHARGED HOME, SELF-CARE Condition at Discharge Improved Instructions/Education Provided Alcohol Use Disorder (ED) Prescriptions See Medication Section Referrals ELEAZAR LOCKHART APRN Order Date: 1 Day Address: [address] [place] [address] [phone] Note: Care Plan and Goals Physician Care Plan Problem: 1. Acute Alcohol Intoxication Goal: 1. Follow up with primary care provider, in 1 day for follow up 2. Control Alcohol Use 3. Maintain Hydration 4. Return to the ER as needed Instructions: 1. Follow care plan as discussed/written Functional Status No functional status results. Allergies, Adverse Reactions, Alerts Allergen Type Severity Reaction Status Last Updated No Known Drug Allergies Allergy Unknown Active 08/04/16 Immunizations Query Response on File Recorded Date/Time Hx Influenza Vaccination No 04/11/15 12:22am Hx Pneumococcal Vaccination No 04/11/15 12:22am Hx Influenza Vaccination No 04/11/15 12:22am Influenza Vaccine Hx NONE 08/04/16 9:25am Vital Signs Acute Vital Signs Vital Response Date/Time Temperature (Fahrenheit) 97.7 deg F (96.8 - 99.1) 08/04/2016 3:00pm Temperature (Calculated Celsius) 36.71956 degrees C (36.0 - 37.3) 08/04/2016 3:00pm Pulse Rate (adult) 81 bpm (60 - 100) 08/04/2016 3:00pm Respiratory Rate 16 breaths/min (10 - 20) 08/04/2016 3:00pm O2 Sat by Pulse Oximetry 95 % (90 - 100) 08/04/2016 3:00pm Blood Pressure 111/71 mm Hg 08/04/2016 3:00pm Height (Feet) 5 feet 08/04/2016 9:13am Height (Inches) 1.00 inches 08/04/2016 9:13am Weight (Kilograms) 50.000 kg 08/04/2016 9:13am Body Mass Index (BMI) 20.0 08/04/2016 9:13am Results Laboratory Results Test Name Result Units Flags Reference Collection Date/Time Result Date/ Time Comments White Blood Count 9.9 T/MM3 4.5-11.0 08/04/2016 9:51am 08/04/2016 10: 01am Red Blood Count 5.19 M/MM3 4.50-5.90 08/04/2016 9:51am 08/04/2016 10: 01am Hemoglobin 15.8 GM/DL 13.5-17.5 08/04/2016 9:51am 08/04/2016 10:01am Hematocrit 45.2 % 41-53 08/04/2016 9:51am 08/04/2016 10:01am Mean Corpuscular Volume 87.1 UM3 80-100 08/04/2016 9:51am 08/04/2016 10 :01am Mean Corpuscular Hemoglobin 30.4 UUG 26-34 08/04/2016 9:51am 2016 10:01am Mean Corpuscular Hemoglobin Concent 35.0 GM/DL 31-37 08/04/2016 9:51am 08/04/2016 10:01am RDW Standard Deviation 39.8 FL 36.9-50.2 08/04/2016 9:51am 08/04/2016 10:01am Platelet Count 207 T/MM3 130-400 08/04/2016 9:51am 08/04/2016 10:01am Mean Platelet Volume 11.1 UM3 9.4-12.4 08/04/2016 9:51am 08/04/2016 10: 01am Neutrophils (%) (Auto) 47.9 % 33-66 08/04/2016 9:51am 08/04/2016 10: 01am Lymphocytes (%) (Auto) 45.9 % H 23-45 08/04/2016 9:51am 08/04/2016 10: 01am Monocytes (%) (Auto) 3.8 % 0-9.0 08/04/2016 9:51am 08/04/2016 10:01am Eosinophils (%) (Auto) 1.2 % 0-4 08/04/2016 9:am 08/04/2016 10:01am Basophils (%) (Auto) 1.0 % 0-2 08/04/2016 9:51am 08/04/2016 10:01am Immature Granulocyte % (Auto) 0.2 % 0.0-0.5 08/04/2016 9:51am 2016 10:01am Absolute Neutrophils (auto) 4.8 T/MM3 1.8-7.7 08/04/2016 9:2016 10:01am Absolute Lymphocytes (auto) 4.6 T/MM3 1-4.8 08/04/2016 9:2016 10:01am Absolute Monocytes (auto) 0.4 T/MM3 0-0.8 08/04/2016 9:08/04/2016 10:01am Absolute Eosinophils (auto) 0.1 T/MM3 0-0.5 08/04/2016 9:2016 10:01am Absolute Basophils (auto) 0.1 T/MM3 0-0.2 08/04/2016 9:08/04/2016 10:01am Absolute Immature Granulocyte (auto 0.02 T/MM3 0.00-0.03 08/04/2016 9: 08/04/2016 10:01am Icterus Index < 2 0-7 08/04/2016 9:08/04/2016 10:11am Chemistry Specimen Hemolysis < 15 0-25 08/04/2016 9:08/04/2016 10:11am 0-25: Specimen Exhibited No Hemolysis. Turbidity < 20 0-20 08/04/2016 9:08/04/2016 10:11am Sodium Level 151 MEQ/L H 134-144 08/04/2016 9:08/04/2016 10:11am Potassium Level 4.2 MEQ/L 3.6-5 08/04/2016 9:08/04/2016 10:11am Chloride Level 110 MEQ/L H 98-107 08/04/2016 9:08/04/2016 10:11am Carbon Dioxide Level 22 MEQ/L 22-30 08/04/2016 9:08/04/2016 10: 11am Anion Gap 19 MEQ/L H 5-15 08/04/2016 9:08/04/2016 10:11am Blood Urea Nitrogen 11.0 MG/DL 9-20 08/04/2016 9:08/04/2016 10: 11am Creatinine 0.7 MG/DL L 0.8-1.5 08/04/2016 9:08/04/2016 10:11am BUN/Creatinine Ratio 16 RATIO 6-26 08/04/2016 9:08/04/2016 10: 11am Glomerular Filtration Rate Calc 122 08/04/2016 9:08/04/2016 10 :11am Glucose Level 76 MG/DL 75-110 08/04/2016 9:08/04/2016 10:11am Calculated Osmolality 288 MOSM/KG H 261-280 08/04/2016 9:2016 10:11am Calcium Level 9.3 MG/DL 8.4-10.2 08/04/2016 9:08/04/2016 10:11am Phosphorus Level 4.3 MG/DL 2.5-4.5 08/04/2016 9:08/04/2016 10: 11am Total Bilirubin 0.60 MG/DL 0.20-1.30 08/04/2016 9:08/04/2016 10: 11am Alkaline Phosphatase 106 U/L 38-126 08/04/2016 9:08/04/2016 10: 11am Total Protein 7.7 G/DL 6.3-8.2 08/04/2016 9:08/04/2016 10:11am Albumin 4.6 G/DL 3.5-5.0 08/04/2016 9:08/04/2016 10:11am Globulin 3.1 G/DL 2.4-3.6 08/04/2016 9:08/04/2016 10:11am Albumin/Globulin Ratio 1.5 RATIO 1.1-2.2 08/04/2016 9:08/04/2016 10:11am Aspartate Amino Transf (AST/SGOT) 236 U/L H 17-59 08/04/2016 9:11/2016 10:11am Alanine Aminotransferase (ALT/SGPT) 178 U/L H 21-72 08/04/2016 9: 10:11am Magnesium Level 1.8 MG/DL 1.6-2.3 08/04/2016 9:08/04/2016 10:11am Acetaminophen Level < 10 UG/ML L 10-30 08/04/2016 9:08/04/2016 10: 11am TOXIC <4 HR POST INGESTION: >150 MG/L; TOXIC <12 HR POST INGESTION: >50 MG/L Salicylates Level < 1.0 MG/DL L 2-20 08/04/2016 9:51am 08/04/2016 10: 11am Alcohol, Quantitative 273 MG/DL <10 08/04/2016 12:38pm 08/04/2016 1: 02pm Urine Collection Type CLEANCATCH-MIDSTREAM 08/04/2016 2:43pm 2016 2:49pm Urine Color YELLOW YELLOW 08/04/2016 2:43pm 08/04/2016 2:49pm Urine Turbidity CLEAR CLEAR 08/04/2016 2:43pm 08/04/2016 2:49pm Urine Specific [place] 1.020 1.015-1.025 08/04/2016 2:43pm 2016 2:49pm Urine pH 5.0 5.0-8.0 08/04/2016 2:43pm 08/04/2016 2:49pm Urine Leukocyte Esterase NEGATIVE NEGATIVE 08/04/2016 2:43pm 2016 2:49pm Urine Nitrite NEGATIVE NEGATIVE 08/04/2016 2:43pm 08/04/2016 2:49pm Urine Protein NEGATIVE NEGATIVE 08/04/2016 2:43pm 08/04/2016 2:49pm Urine Glucose (UA) NEGATIVE NEGATIVE 08/04/2016 2:43pm 08/04/2016 2: 49pm Urine Ketones 1+ A NEGATIVE 08/04/2016 2:43pm 08/04/2016 2:49pm Urine Urobilinogen 0.2 EU/DL NORMAL 08/04/2016 2:43pm 08/04/2016 2: 49pm Urine Bilirubin NEGATIVE NEGATIVE 08/04/2016 2:43pm 08/04/2016 2: 49pm Urine Blood NEGATIVE NEGATIVE 08/04/2016 2:43pm 08/04/2016 2:49pm Urinalysis Comment MICROSCOPIC NOT IND. 08/04/2016 2:43pm 2016 2:49pm Procedures No known history of procedures. Encounters Encounter Location Arrival/Admit Date Discharge/Depart Date Attending Provider Departed Emergency Room [facility] 08/04/16 9:11am 08/04/16 3: 00pm MICHELLE LANGFORD DO Recent Diagnosis
[2016-08-15 16:45] VITALS: Ht 172.7 cm; Wt 70.0 kg
--- NOTE | 2016-08-15 16:53 | ERPDOC ---
Departure Disposition Decision Date: August 15, 2016 Disposition Decision Time: 17:09 Disposition: 01 DISCHARGED HOME, SELF-CARE Impression Impression Impression: Primary Impression: Alcohol abuse Condition: Stable Seen By: Mid-level only Referrals: ELEAZAR LOCKHART APRN (Family) Patient Instructions: Abuse of Alcohol (ED) Problems/Meds/Labs Reviewed?: Yes Medications reviewed and manag: Yes Additional Instructions: Patient is cleared to go to [facility]. Keep hydrated, drink 8-12 glasses of water daily. Follow with a PCP as needed. Follow treatment plan. Follow up care ordered?: Yes Mental Status: Alert, Oriented [facility] - General Medical General Chief Complaint: Substance Abuse Stated Complaint: INTOXICATION Time Seen by Provider: 16:46 Source: patient, police HPI - General Medical Initial Comments 85-year-old male brought to ER for clearance to go to [facility] by constitutional law professor. Patient was found publicly intoxicated. Patient admits to drinking 1/ 5 of vodka. Patient is drowsy and wanting to sleep however easily awakens and answers questions to provider. Patient does smell of urine and admits to being incontinent of urine due to drinking. Allergies: Coded Allergies: No Known Drug Allergies (Verified Allergy, Unknown, 08/15/16) Past History Patient Surgical History urethral surgery Past Medical History Metabolic: DENIES: diabetes Hx Echocardiogram: No Respiratory: COPD GI: other (cirrhosis of liver) Neurological: TIA, DENIES: seizures Musculoskeletal: DENIES: back pain Infectious: hepatitis C Psychological: alcohol abuse Surgical History Reproductive/: other (urethral mesh) Family History Family PMH: FOUND: other (noncontributory) Vaccines Hx Influenza Vaccination: No Hx Pneumococcal Vaccination: No Social History Does patient use chewing tobac: No # of Packs/Tins per Day: 0.5 # of Years: 30 Second Hand Exposure: No Substance Use Type: does not use Alcohol Intake: daily Last Drink: unknown Marital Status: Single Service: No Occupational Hazard: No Advance Directives: Yes Full Code Physical Exam General Vitals and Pain First Documented Vital Signs Date Time Temp Pulse Resp B/P Pulse Ox O2 Delivery O2 Flow Rate FiO2 08/15/16 16:45 97.8 82 20 158/88 96 Room Air Weight: Kilograms: Height (feet): 5 Height (inches): 1.00 Triage Pain Scale: Progress Progress Progress Patient is orient to person/place, follows command and is not ataxic. ALBARO OJEDA GREY ROLL WORKER August 15, 2016 16:53
--- NOTE | 2016-08-15 16:55 | NUR ---
ACTIVITY PT AMBULATED IN FIELDS WITH STANDBY. PT SAYS HE IS JUST DRUNK AND HE IS WALKING FINE
--- OUTSIDE RECORDS SUMMARY | 2016-08-15 16:56 | XMS REPORT ---
Author Author [employer] Organization Unknown Address Unknown Phone Unavailable Care Team Providers Care Business Support Specialist Name Role Phone UNASSIGNED DOCTOR , DOCTOR PP [phone] Reason For Visit Chief Complaint LACERATION LEFT [...]
--- OUTSIDE RECORDS SUMMARY | 2016-08-15 16:57 | XMS REPORT | Continuity of Care Document ---
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 Visit Date/Time Discharge Status Pt. Type Provider Facility Loc./Unit Complaint [id number] 05/25/2013 14:33:00 05/25/2013 23 :59:59 [facility] Outpatient [id number] 05/12/2013 14:57:00 05/12/2013 23 :59:59 [facility] Outpatient
--- NOTE | 2016-08-15 17:04 | NUR ---
PO PT GIVEN SANDWICH AND CHIPS
[2016-08-15 17:22] VITALS: BP 145/78; PULSE 80; RESP 20; TEMP 97.8; O2SAT 97
--- NOTE | 2016-08-15 17:22 | NUR ---
DISMISSAL DISMISSAL INSTRUCTIONS TO PT. NO FURTHER QUESTIONS AT THIS TIME. PT LEFT IN CARE OF MALLORY CHENEY
== END 2016-08-15 17:22 | disposition home or self-care (01) ==
LOC: ED 16:33
DX: Z02.89 Encounter for other administrative examinations (principal); F10.129 Alcohol abuse with intoxication, unspecified; Y90.9 Presence of alcohol in blood, level not specified